=== PATIENT | female | born 1965 | race Caucasian/White ===

== ENCOUNTER → 2017-08-11 | Outpatient (CLI) | payer OTHER ==
[~2017-08-11] VITALS: Ht 172.7 cm; Wt 190.1 kg
[~2017-08-11] MED LIST: AMLO10TA2 PO; CHLORHEXIDINE GLUCONATE 2 % 1 PACK (2 CLOTHS) TOPICAL PRN; FERR325T18 PO; GLYCOPYRROLATE 1 MG/5 ML SYRINGE IV PUSH ONE; KETAMINE HCL 500 MG/10 ML VIAL ONE; LACTATED RINGER'S 1000 ML IV PRN; LIDOCAINE HCL 1% PF 5 ML SYRINGE OTHER ONE; LOSA50TA PO; METOPROLOL TARTRATE 25 MG TAB PO PRN; POVIDONE IODINE 5% (ANTISEPSIS KIT) 4 APPLICATIONS EACH NARE PRN; PROPOFOL 200 MG/20 ML AMP IV ONE; SERT-132 PO; SODIUM CHLORID 0.9% 500 ML IV PRN; ePHEDrine/NS 25 MG/5 ML SYRINGE IV ONE
--- NOTE | 2017-08-11 11:49 | GIPROC ---
[facility] [address] [facility]. [facility], [address] EGD PROCEDURE REPORT EXAM DATE: 08/11/2017 PATIENT NAME: Katia Conley MR #: [id number] BIRTHDATE: 1965 ATTENDING: Aguila Hartman MD ORDER #: [id number] PROPOSAL MANAGER: Jalyn Montiel and Delmy Wan STATUS: outpatient INDICATIONS: The patient is a 52 yr old female here for an EGD due to GERD; heartburn is controlled with omeprazole. PROCEDURE PERFORMED: EGD, diagnostic MEDICATIONS: Per Anesthesia. TOPICAL ANESTHETIC: none CONSENT: The patient understands the risks and benefits of the procedure and understands that these risks include, but are not limited to: sedation, allergic reaction, infection, perforation and/or bleeding. Alternative means of evaluation and treatment include, among others: physical exam, x-rays, and/or surgical intervention. The patient elects to proceed with this endoscopic procedure. medical equipment was checked for proper function. Hand hygiene and appropriate measures for infection prevention was taken. After the risks, benefits and alternatives of the procedure were thoroughly explained, Informed consent was verified, confirmed and timeout was successfully executed by the treatment team. The patient was anesthetized with topical anesthesia and the Pentax [id number] endoscope was introduced through the mouth and advanced to the . Retroflexed views revealed a hiatal hernia The gastroscope was then slowly withdrawn and removed. Normal exam with a 4cm sliding hiatal hernia noted. ADVERSE EVENTS: There were no complications. IMPRESSIONS: Sliding hiatal hernia RECOMMENDATIONS: Continue anti-reflux regimen and omeprazole. PATIENT CONDITION: stable DISPOSITION: Home REPEAT EXAM: Aguila Hartman MD eSigned: Aguila Hartman MD 08/11/2017 11:48 AM cc: Mark Azevedo M.D.
[2017-08-11 11:50] VITALS: BP 95/53; PULSE 84; RESP 18; TEMP 97.9; O2SAT 97
--- NOTE | 2017-08-11 11:53 | GIPROC ---
[facility] [address] [facility]. [facility], [address] COLONOSCOPY PROCEDURE REPORT EXAM DATE: 08/11/2017 PATIENT NAME: Katia Conley MR #: [id number] BIRTHDATE: 1965 ENDOSCOPIST: Aguila Hartman MD ORDER #: [id number] COGENERATION TECHNICIAN: Jalyn Montiel and Delmy Wan STATUS: outpatient INDICATIONS: The patient is a 52 yr old female here for a colonoscopy due to screening; average risk. PROCEDURE PERFORMED: Colonoscopy, screening MEDICATIONS: None and Per Anesthesia. PREP QUALITY: good ESTIMATED BLOOD LOSS: None CONSENT: The patient understands the risks and benefits of the procedure and understands that these risks include, but are not limited to: sedation, allergic reaction, infection, perforation and/or bleeding. Alternative means of evaluation and treatment include, among others: physical exam, x-rays, and/or surgical intervention. The patient elects to proceed with this endoscopic procedure. medical equipment was checked for proper function. Hand hygiene and appropriate measures for infection prevention was taken. After the risks, benefits and alternatives of the procedure were thoroughly explained, Informed consent was verified, confirmed and timeout was successfully executed by the treatment team. A digital exam was performed and revealed no abnormalities of the rectum The Pentax [id number] endoscope was introduced through the anus and advanced to the cecum, which was identified by both the appendix and ileocecal valve. The instrument was then slowly withdrawn as the colon was fully examined. COLON FINDINGS: The colonic mucosa appeared normal. Retroflexed views revealed no abnormalities The scope was then completely withdrawn from the patient and the procedure terminated. ADVERSE EVENTS: There were no complications. IMPRESSIONS: 1. The colonic mucosa appeared normal 2. Retroflexed views revealed no abnormalities 3. Was performed 4. Revealed no abnormalities of the rectum RECOMMENDATIONS: Resume prior diet/medications. RECALL: Return 10 years Colonoscopy Aguila Hartman MD eSigned: Aguila Hartman MD 08/11/2017 11:52 AM cc: Mark Azevedo M.D.
--- NOTE | 2017-08-11 14:47 | EKG ---
Date Performed: 08/11/2017 Time Performed: 10:46:29 PTAGE: 52 years EKG: Sinus rhythm LOW QRS VOLTAGE IN PRECORDIAL LEADS POSSIBLE ANTERIOR MYOCARDIAL INFARCTION , PROBABLY OLD BORDERLIN E ECG NO PREVIOUS TRACING DOCTOR: Roberth Madrid Interpretating Date/Time 08/11/2017 14:46:07
== END ==
LOC: HSDC 09:22
DX: Z12.11 Encounter for screening for malignant neoplasm of colon (principal); K21.9 Gastro-esophageal reflux disease without esophagitis; R12 Heartburn; K44.9 Diaphragmatic hernia without obstruction or gangrene; R94.31 Abnormal electrocardiogram [ECG] [EKG]
CPT/HCPCS: 00740; 00810; 43235; 45378; 93005; J7120